=== PATIENT | male | born 1995 | race Caucasian/White ===

== ENCOUNTER 2017-01-12 10:29 | Day surgery (SDC) | payer BC ==
[~2017-01-12] VITALS: Ht 165.1 cm; Wt 63.6 kg
[2017-01-12 15:15] VITALS: BP 135/74; PULSE 60; TEMP 94.8
[2017-01-12 15:30] VITALS: BP 141/78; PULSE 67; TEMP 98
[2017-01-12 15:45] VITALS: BP 132/81; PULSE 66; TEMP 98
[2017-01-12 16:00] VITALS: BP 136/86; PULSE 54; PULSE 58; TEMP 98; TEMP 98.2
[2017-01-12 16:30] VITALS: BP 127/75; PULSE 50; TEMP 98
[2017-01-12 16:51] VITALS: BP 127/82; PULSE 50; TEMP 98.2
== END 2017-01-12 18:45 | disposition home or self-care (01) ==
LOC: COL.ER 10:29 → SDCO 11:45 → SURG 15:00 → SDCO 18:45
DX: K35.80 Unspecified acute appendicitis (principal)
CPT/HCPCS: OP; J0694; J1100; J1170; J2175; J2310; J2405; J2704; J3010; J7030; Q9967